=== PATIENT | female | born 1995 | race Two or more races ===

== ENCOUNTER 2020-06-09 18:40 | Observation (INO) | payer MEDICAID ==
[~2020-06-09] VITALS: Ht 157.5 cm; Wt 94.8 kg
[2020-06-09] MEDS ORDERED: LACTATED RINGERS 1,000 ML IV SCH (20:16)
[2020-06-09] MEDS ORDERED: NACL 0.9% 1,000 ML IV SCH (20:25)
[2020-06-09] MEDS ORDERED: CLINDAMYCIN 900 MG in DEXTROSE 5% 100 ML IV SCH (20:25)
[2020-06-09] MEDS ORDERED: CLINDAMYCIN 900 MG/6 ML VIAL IV ONE (20:44)
[2020-06-09 21:30] VITALS: BP 123/72
== END 2020-06-09 23:05 | disposition home or self-care (01) ==
LOC: MLD 18:40
PROVIDERS: ADMIT Obstetrics & Gynecology; ATTEND Obstetrics & Gynecology
DX: O26.893 Other specified pregnancy related conditions, third trimester (principal); R10.9 Unspecified abdominal pain; M54.5 Low back pain; O34.219 Maternal care for unspecified type scar from previous cesarean delivery; Z3A.37 37 weeks gestation of pregnancy
CPT/HCPCS: 59025; 81000; 96365; G0378; J3490